=== PATIENT | female | born 1940 | race Two or more races ===

== ENCOUNTER 2021-10-06 08:04 | Outpatient (CLI) | payer OTHER | END 2021-10-06 08:20 | disposition home or self-care (01) | LOC: RAD 08:04 | PROVIDERS: ATTEND Orthopaedic Surgery | DX: M25.561 Pain in right knee (principal); M25.551 Pain in right hip; M54.50 Low back pain, unspecified; M25.511 Pain in right shoulder; M25.562 Pain in left knee; M25.552 Pain in left hip | CPT/HCPCS: 73721 ==

== ENCOUNTER 2021-10-10 13:44 | Outpatient (CLI) | payer OTHER | END 2021-10-10 13:56 | disposition home or self-care (01) | LOC: MRI 13:44 | PROVIDERS: ATTEND Orthopaedic Surgery | DX: M25.511 Pain in right shoulder (principal) | CPT/HCPCS: 73221 ==